=== PATIENT | male | born 1970 | race African-American/Black ===

== ENCOUNTER 2018-10-17 11:39 | Emergency (ER) | payer OTHER ==
[2018-10-17 11:51] VITALS: BP 122/80; PULSE 71; BMI 23.6
[2018-10-17] MEDS ORDERED: DIPHTH,PERTUSS(ACELL),TET 0.5 ML DISP.SYRIN IM ONE ×2 (12:05→12:08)
[2018-10-17] MEDS ORDERED: IBUPROFEN 400 MG TABLET (FP) PO ONE ×2 (12:05→12:08)
--- NOTE | 2018-10-17 12:11 | PDOC ---
History of Present Illness - General Chief Complaint: Injury Stated Complaint: LEFT HAND SWELLING Time Seen by Provider: 10/17/18 11:51 History Source: Patient - History of Present Illness Occurred: reports: yesterday Upper Extremity Pain Location: left: 3rd finger Past History - Past Medical History Allergies/Adverse Reactions: Allergies Allergy/AdvReac Type Severity Reaction Status Date / Time No Known Allergies Allergy Verified 10/17/18 11:44 Home Medications: Ambulatory Orders Cephalexin [Keflex] 500 mg PO Q6H #28 capsule 10/17/18 COPD: No - Suicide/Smoking/Psychosocial Hx Smoking History: Unknown if ever smoked Review of Systems - Review of Systems Constitutional: No: Fever *Physical Exam - Vital Signs Last Vital Signs Temp Pulse Resp BP Pulse Ox 71 16 122/80 99 10/17/18 11:44 10/17/18 11:44 10/17/18 11:44 10/17/18 11:44 - Physical Exam General Appearance: Yes: Appropriately Dressed, Mild Distress HEENT: positive: Normal Voice Neck: positive: Supple Respiratory/Chest: negative: Respiratory Distress Extremity: positive: Other (jagged cutaneous lac to dorsum of middle phalanx of L 3rd digit w/ sig ttp and minimal erythema to site, no discharge or induration , FROMI, sensation intact) Integumentary: positive: Dry, Warm Neurologic: positive: Fully Oriented, Alert, Normal Mood/Affect Moderate Sedation - Procedure Monitoring Vital Signs: Procedure Monitoring Vital Signs Temperature Pulse Rate 71 10/17/18 11:44 Respiratory Rate 16 10/17/18 11:44 Blood Pressure 122/80 10/17/18 11:44 O2 Sat by Pulse Oximetry (%) 99 10/17/18 11:44 ED Treatment Course - RADIOLOGY Radiology Studies Ordered: Category Date Time Status FINGER(S) LEFT [RAD] Stat Radiology 10/17/18 12:04 Ordered Medical Decision Making - Medical Decision Making 10/17/18 12:05 48 yo M, no sig hx, here w/ pain and swelling to L 3rd finger after getting finger caught between shopping cart and wall at supermarket at yesterday afternoon. States pain worsened today at work. No f/c See exam Crush injury to finger Jagged cutaneous lac w/ minimal erythema to site, ?early infxn -pain control -tetanus -XR r/o fx 10/17/18 12:26 X-ray negative for fracture. S/p local wound care with betadine, bacitracin and dressing. Keflex sent to pharmacy. Patient to return in 2 days for wound check *DC/Admit/Observation/Transfer Diagnosis at time of Disposition: Crush injury - Discharge Dispostion Disposition: HOME Condition at time of disposition: Good - Prescriptions Prescriptions: Cephalexin [Keflex] 500 mg PO Q6H #28 capsule - Referrals - Patient Instructions Printed Discharge Instructions: DI for Crush Injury, Cellulitis Additional Instructions: Your XR was negative for fracture. You were started on antibiotics for possible wound infection. Take antibiotics as directed Keep wound clean and dry Return to ED in 2 days for a wound check You were given a tetanus shot today - Post Discharge Activity Forms/Work/School Notes: Back to Work
[2018-10-17] MEDS ORDERED: BACITRACIN 15 GM TUBE TOPICAL OINTMENT ONE (12:26)
== END 2018-10-17 12:44 | disposition home or self-care (01) ==
LOC: JERFT 11:39
PROC: 3E0234Z Introduction of Serum, Toxoid and Vaccine into Muscle, Percutaneous Approach (ICD-10-PCS; principal; 2018-10-17)
DX: S67.193A Crushing injury of left middle finger, initial encounter (principal); W23.0XXA Caught, crushed, jammed, or pinched between moving objects, initial encounter; Y93.89 Activity, other specified; Y92.512 Supermarket, store or market as the place of occurrence of the external cause; Y99.8 Other external cause status
CPT/HCPCS: 73140-TC-LT-FY; 90471; 90715; 99281-25